=== PATIENT | female | born 1960 | race African-American/Black ===

== ENCOUNTER 2016-12-24 04:44 | Emergency (ER) | payer OTHER ==
[~2016-12-24] VITALS: Ht 165.1 cm; Wt 123.4 kg
[~2016-12-24 04:44] MED LIST: PRED20TA PO; TRAM50TA PO
--- NOTE | 2016-12-24 05:08 | PHYS DOC ---
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 She was just seen by her doctor at on 12/19. She has blood pressure medications that she has not yet picked up at the pharmacy for about a week. She has right knee pain from her arthritis in her gout and her medication of Tylenol and naproxen are not working. She cannot take any narcotics. She has taken tramadol in the past but she is out of that. 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 Patient is brought in by the daughter.No confusion noted. She brings her recent office visit from 12/19/16 paperwork and noted there her BP was 212/114. The patient states that her knee is hurting her which is causing her BP to go up which is causing her headache. No vision change; no numbness or tingling of extremities. Review of Systems Review of Systems Constitutional: Denies fever or chills Eyes: Denies change in visual acuity, redness, or eye pain HENT: Denies nasal congestion or sore throat Respiratory: Denies cough or shortness of breath Cardiovascular: No chest pain GI: Denies abdominal pain, nausea, vomiting, bloody stools or diarrhea : Denies dysuria or hematuria Musculoskeletal: Denies back pain. POS Right knee pain. Integument: Denies rash or skin lesions Neurologic: dull headache, NO focal weakness or sensory changes Current Medications Current Medications Current Medications Medications (Trade) Dose Ordered Sig/[place] Start Time Stop Time Status Last Admin Dose Admin Amlodipine Besylate (Norvasc) 10 mg 1X ONCE 12/24/16 05:30 12/24/16 05:31 DC 12/24/16 05:31 10 MG Clonidine HCl (Catapres) 0.3 mg 1X ONCE 12/24/16 05:30 12/24/16 05:31 DC 12/24/16 05:30 0.3 MG Hydrochlorothiazide (Microzide) 12.5 mg 1X ONCE 12/24/16 05:30 12/24/16 05:31 DC 12/24/16 05:30 12.5 MG Losartan Potassium (Cozaar) 50 mg DAILY 12/24/16 05:30 12/24/16 05:31 50 MG Metoprolol Tartrate (Lopressor) 25 mg 1X ONCE 12/24/16 05:30 12/24/16 05:31 DC 12/24/16 05:30 25 MG Tramadol HCl (Ultram) 50 mg 1X ONCE 12/24/16 05:30 12/24/16 05:31 DC 12/24/16 05:30 50 MG Allergies Allergies Allergies Coded Allergies Type Severity Reaction Last Updated Verified Opioids - Morphine Analogues Allergy Severe Anaphylaxis 12/24/16 Yes Opioids-Meperidine and Related Allergy Severe Anaphylaxis 12/24/16 Yes Opioids-Methadone and Related Allergy Severe Anaphylaxis 12/24/16 Yes Physical Exam Physical Exam Constitutional: Well developed, well nourished, no acute distress, non-toxic appearance. HENT: Normocephalic, atraumatic, bilateral external ears normal, oropharynx moist, no oral exudates, nose normal. Eyes: PERRLA, EOMI, conjunctiva normal, no discharge. Neck: Normal range of motion, no tenderness, supple, no stridor. Cardiovascular:Heart rate regular rhythm, no murmur Lungs & Thorax: Bilateral breath sounds clear to auscultation Abdomen: Bowel sounds normal, soft, no tenderness, no masses, no pulsatile masses. Skin: Warm, dry, no erythema, no rash. Back: No tenderness, no CVA tenderness. Extremities: No tenderness, no cyanosis, no clubbing, ROM intact, no edema. Neurologic: Alert and oriented X 3, normal motor function, normal sensory function, no focal deficits noted. Psychologic: Affect normal, judgement normal, mood normal. Current Patient Data Vital Signs Vital Signs Date Time Temp Pulse Resp B/P (MAP) Pulse Ox O2 Delivery O2 Flow Rate FiO2 12/24/16 05:31 76 223/120 12/24/16 05:09 98.7 18 99 Room Air 98.7 Course & Med Decision Making Course & Med Decision Making Patient states that this headache is consistent with her blood pressure headaches. No vision change.No chest pain or SOA. She was given all of her BP meds po here and a dose of clonidine as well. Tramadol dosed as well. SHE HAS THE RX FOR HER BP MEDS AND THE DAUGHTER SAYS THEY WILL GO TODAY AND PICK THEM UP. They do need a rx for tramadol and that was provided. Patient was warned that leaving her BP uncontrolled can result in cardiac damage ; stroke and renal failure. Dragon Disclaimer Dragon Disclaimer This electronic medical record was generated, in whole or in part, using a voice recognition dictation system. Departure Departure Impression: Primary Impression: Poorly controlled blood pressure Additional Impressions: Noncompliance with medication regimen Right knee pain Headache Disposition: HOME, SELF-CARE Condition: STABLE Referrals: UNKNOWN PCP NAME (PCP) Patient Instructions: Hypertension Additional Instructions: YOU MUST GET YOUR BLOOD PRESSURE MEDS TODAY AND TAKE THEM PRESCRIBED. SINCE YOU HAVE BEEN NOT TAKING THEM FOR A WEEK IT WILL TAKE SEVERAL DAYS FOR THE MEDS TO KEEP YOUR PRESSURE DOWN. Scripts Tramadol Hcl (TRAMADOL HCL) 50 Mg Tablet 50 MG PO Q4H Y for PAIN, #20 TAB Prov: FAUZIA SAN MD 12/24/16 Problem Qualifiers FAUZIA SAN MD Dec 24, 2016 05:08
[2016-12-24] MEDS ORDERED: hydroCHLOROthiazide 12.5 MG CAPSULE PO ONE (05:30)
[2016-12-24] MEDS ORDERED: traMADol 50 MG TABLET PO ONE (05:30)
[2016-12-24] MEDS ORDERED: amLODIPine BESYLATE 5 MG TABLET PO ONE (05:30)
[2016-12-24] MEDS ORDERED: cloNIDine HCL 0.1 MG TABLET PO ONE (05:30)
[2016-12-24] MEDS ORDERED: LOSARTAN POTASSIUM 50 MG TABLET. PO SCH (05:30)
[2016-12-24] MEDS ORDERED: METOPROLOL TART IMMED RELEASE 25 MG TABLET. PO ONE (05:30)
[2016-12-24 05:31] VITALS: BP 223/120
[2016-12-24] MEDS ORDERED: TRAM50TA PO (05:44)
[2016-12-24] MEDS ORDERED: PHENAZOPYRIDINE 200 MG TABLET. PO ONE (06:30)
== END 2016-12-24 06:42 | disposition home or self-care (01) ==
LOC: ER 04:44
DX: I10 Essential (primary) hypertension (principal); Z91.14 Patient's other noncompliance with medication regimen; R51 Headache; M25.561 Pain in right knee; E11.9 Type 2 diabetes mellitus without complications; E78.00 Pure hypercholesterolemia, unspecified; M10.9 Gout, unspecified; Z90.710 Acquired absence of both cervix and uterus; Z90.49 Acquired absence of other specified parts of digestive tract; Z88.8 Allergy status to other drugs, medicaments and biological substances
CPT/HCPCS: 99284